=== PATIENT | male | born 1945 | race Caucasian/White ===

== ENCOUNTER 2016-06-22 12:52 | Inpatient (IN) | payer OTHER ==
--- NOTE | ~2016-06-22 | DS ---
Discharge Summary [facility] [address] [place]. [address] NAME: ANA BRIONES : 45 STATUS : ADM IN [facility]#: [id number] AGE: 70 ADM/REG DATE : 06/22/16 MR#: [id number] REPORT SERV DATE: 06/24/16 DICTATED BY: ROMA PRIDE DATE: 06/24/16 REPORT STATUS : Draft TRANSCRIBED BY: MODL DATE: 06/24/16 ADMISSION DATE: 06/22/2016 DISCHARGE DATE: DATE OF : 06/24/2016 at 1352 hours. ADMISSION DIAGNOSES: 1. Encephalopathy. 2. Febrile illness, possible meningitis. 3. History of ankylosing spondylitis, on Enbrel. 4. Atrial fibrillation, chronic. 5. Hypertension. 6. History of pneumonia. 7. History of arthritis. 8. History of anemia. 9. History of depression. 10.Congestive heart failure. DISCHARGE DIAGNOSES: 1. MSSA septic shock. 2. Acute kidney injury. 3. Continued encephalopathy. 4. Possible xuo-RZ-diqwjqn elevation myocardial infarction with decreased ejection fraction. 5. Atrial flutter/atrial fibrillation. 6. Rhabdomyolysis. CONSULTATIONS DURING THIS HOSPITALIZATION: To Infectious Diseases, Dr. Longoria and to Neurology, Dr. Hammond. HOSPITAL COURSE: This is a 70-year-old patient, who was brought to the hospital after he became unresponsive at home and was noted to have high fevers as high as 104. The patient has known ankylosing spondylitis and it was difficult to tell as to whether or not he had a stiff neck. There was serious consideration to the possibility of meningitis. LP was ordered, however, the patient was so obtunded that it was feared that he will not be able to maintain his airway and so this was canceled. The patient was then pancultured and transferred to the MICU for further care. Code status is a DNR, and this is the other reason intubation was not chosen. The patient eventually grew out methicillin-sensitive Staph aureus and he was changed to Ancef as per Dr. Longoria. Neurology then saw the patient, did an EEG that showed no evidence of seizures. A long discussion was had with the family on 06/23/2016 and they were very clear that his wishes were not to have full resuscitation, no dialysis, and no feeding tubes. The patient did have a nasogastric tube placed mostly for the administration of medication. It was thought at first that perhaps the patient had serotonin syndrome and he was treated with cyproheptadine which was discontinued on the . The patient also had an increase in troponin and a decrease in left ventricular function on the echocardiogram. He was seen by Cardiology. However, given the patient's Discharge Summary [facility] [address] [place]. [address] NAME: ANA BRIONES : 45 STATUS : ADM IN PAT#: [id number] AGE: 70 ADM/REG DATE : 06/22/16 MR#: [id number] REPORT SERV DATE: 06/24/16 DICTATED BY: ROMA PRIDE DATE: 06/24/16 REPORT STATUS : Draft TRANSCRIBED BY: ELIZA DATE: 06/24/16 severe debilitated condition, he was not a candidate for any aggressive therapy such as cardiac catheterization. So, the patient was then just conservatively treated. Biggest issue was the patient's acute kidney injury, he continued to be oliguric despite high doses of diuretic. He also had been on Levophed and vasopressin. Those were slowly able to be weaned. However, there was not any significant improvement in the patient's condition. Further discussion was undertaken with the family on 06/24/2016 and at that time, it was decided to pursue comfort measures and to withdraw care. This was accomplished on the morning of 06/24/2016. The patient quietly in the afternoon at 1352 hours. /MODDerek Roma Pride M.D. / [id number] CC: DO Sage Rivera M.D.
--- NOTE | ~2016-06-22 | HP ---
History And Physical [facility] [address] [place] [place]. [address] NAME: ANA BRIONES : 45 STATUS : ADM IN [facility]#: [id number] AGE: 70 ADM/REG DATE : 06/22/16 MR#: [id number] REPORT SERV DATE: 06/22/16 DICTATED BY: POLA WALDRON DATE: 06/22/16 REPORT STATUS : Draft TRANSCRIBED BY: MODL DATE: 06/22/16 DATE OF ADMISSION: 06/22/2016 HISTORY OF PRESENT ILLNESS: This is a 70-year-old white male whom we are admitting to the ICU for altered mental status and fever of 104.8. Most of the history was obtained from the emergency room physician and the daughter by phone. The patient apparently had normal mental status a couple days ago but then it got progressively worse to the point of being unresponsive. He had a 104.8 fever in triage and mildly hypertensive. Complete source of infection is not clear at this time. There was concern for possible meningitis but he does have a history of ankylosing spondylitis and between that and his altered mental status lumbar puncture was not able to be obtained by either the emergency room physician or Interventional Radiology. He was thought to have had a seizure as witnessed by the emergency room physician. His initial diagnostic data showed a normal white blood cell count of 7.5 but had elevated bands of 54% and a lactate of 3.7. His flu swab was negative. He did have a CT scan of his chest that showed mild infiltrates in both lungs. He was started empirically on vancomycin, Zosyn, cefepime, and ampicillin. He also was giving 2 L of IV fluid for his sepsis, and he was also loaded with Keppra as well for the seizure activity. It does appear that the patient had some type of cardiac injury with an elevated troponin, but EKG did not show any evidence of STEMI but troponin level was elevated at 5.83. Code status was not really addressed with the family up to this point before I was involved with the patient, and the family had already gone home by the time I got to the emergency room to see the patient. REVIEW OF SYSTEMS: Unable to be obtained. PAST MEDICAL HISTORY: Ankylosing spondylitis, atrial fibrillation, hypertension, pneumonia, arthritis, anemia, depression, and CHF. PAST SURGICAL HISTORY: Left hip surgery. ALLERGIES: INDOCIN. HOME MEDICATIONS: Awaiting pharmacy to reconcile these. Apparently, the patient is thought to be on Enbrel. SOCIAL HISTORY: He is and lives with as well as his daughter. FAMILY HISTORY: The patient is adopted. PHYSICAL EXAMINATION: VITAL SIGNS: Per nursing flow sheet. GENERAL: The patient is lying with altered mental status and very minimal interaction. NEUROLOGIC: Response to pain only. We will try to localize somewhat. He will open his History And Physical [address] [place]. [address] NAME: ANA BRIONES : 45 STATUS : ADM IN PAT#: [id number] AGE: 70 ADM/REG DATE : 06/22/16 MR#: [id number] REPORT SERV DATE: 06/22/16 DICTATED BY: POLA WALDRON DATE: 06/22/16 REPORT STATUS : Draft TRANSCRIBED BY: ELIZA DATE: 06/22/16 eyes to painful stimuli. His neck exam shows a very stiff neck, not able to flex, extend, or turn the head at all. He does moan and wake up when I lift his legs in the air. Pupils are equal and reactive. NECK: Trachea midline. No palpable lymph nodes. HEENT: Normocephalic and atraumatic. HEART: Irregularly irregular and tachycardic. LUNGS: Bilateral rhonchi on oxygen. GI: Soft, nontender, and nondistended. EXTREMITIES: No significant edema. SKIN: No obvious rash that was noticeable. LABORATORY DATA: Labs and radiology studies extensively reviewed by myself. Case was discussed with Dr. Horne, the emergency room physician; Infectious disease with Dr. Longoria; Dr. Cortez with Neurology; as well as the family. ASSESSMENT/PLAN: 1. Fever. 2. Sepsis. 3. Possible meningitis, unclear. 4. Seizure activity. 5. Non-STEMI. 6. Atrial fibrillation with rapid ventricular response. 7. Altered mental status. 8. Acute kidney injury. 9. Possible pneumonia ? aspiration. 10.Splenomegaly. 11.Chronic systolic heart failure with EF 30% by SERAFIN back in 2014. Neurologic: The patient will be covered empirically for meningitis as per Infectious Disease plan below. For possible seizure, we will continue with Keppra at 1000 mg IV twice a day. We will continue with aspiration precautions for this patient. Avoid sedatives and pain medications at this time. Possibility for lumbar puncture. Repeat by IR if his mental status or airway is little bit more reliable. I will order EEG. He may need an MRI. Cardiac: He does have atrial fibrillation and elevated heart rate. Probably, he does have some type of non STEMI. We will consult cardiology to see in the morning. We will start a heparin drip. However, if he is going to get a lumbar puncture, we will probably hold off on aspirin for now but will likely institute this if we are able to get the cerebral spinal fluid. We will cycle cardiac enzymes. We will also check a TSH level and free T4 level. Also order a 2D echocardiogram. LUNGS: The patient may have possibly aspirated. He does have some bilateral infiltrates in the lung but they are small and unclear if this represents the major etiology of his infection. However, given the antibiotics he is on, he should be covered for any significant pulmonary infection. We will give the patient oxygen with goal saturation 92% to 94%. History And Physical [address] [place]. [address] NAME: ANA BRIONES : 45 STATUS : ADM IN [facility]#: [id number] AGE: 70 ADM/REG DATE : 06/22/16 MR#: [id number] REPORT SERV DATE: 06/22/16 DICTATED BY: POLA WALDRON DATE: 06/22/16 REPORT STATUS : Draft TRANSCRIBED BY: ELIZA DATE: 06/22/16 GI: The patient will be n.p.o. : Muniz catheter in place with strict I and Os. Infectious disease: I spoke with Dr. Longoria by phone. We will start patient on vancomycin and Rocephin and ampicillin and acyclovir. Blood cultures were drawn. We will add procalcitonin level as well as other routine lab work including lactate level. DISPOSITION: I spoke with daughter and by phone and they do not want the patient to be intubated or undergo any type of resuscitation such as CPR or shock in the event of cardiac arrest. They are okay for medicines to treat hypotension. 90 minutes of critical care time. CEP/MODL Pola Waldron DO / [id number] CC: Sage Arreola M.D.
--- NOTE | ~2016-06-22 | EEG ---
Electroencephalogram [facility] [address] [place]. [address] NAME: ANA BRIONES : 45 STATUS : ADM IN PAT#: [id number] AGE: 70 ADM/REG DATE : 06/22/16 MR#: [id number] REPORT SERV DATE: 06/24/16 DICTATED BY: LEONARD HAMMOND DATE: 06/24/16 REPORT STATUS : Draft TRANSCRIBED BY: MODL DATE: 06/24/16 INTERPRETING PHYSICIAN: Leonard Hammond MD REASON FOR EEG: Possible meningitis, questionable seizures on admission, altered mental status, encephalopathy. EEG NUMBER: [id number]. FINDINGS: 23 surface electrodes, 10-20 international placement was used. Photic stimulation was performed. Video monitoring was utilized. The patient was noted to be unresponsive throughout the study. The background activity consisted of low voltage, poorly organized 6-7 cycles per second, located in the posterior head regions. Intermittent slower frequencies in the theta range were also noted. This slower frequency activity was more prominent in the anterior head regions. No paroxysmal epileptiform activity was seen during this study. The patient's teletypesetter monitor showed sinus tachycardia with sinus arrhythmia, heart rate of approximately 120 beats per minute. Photic stimulation did not bring out additional abnormalities. No driving response was observed. Low voltage beta range activity was also seen, which may represent medication effect. Some Spindle-like activity of low voltage was also seen. No significant asymmetry of cerebral activity was noted. IMPRESSION: ABNORMAL EEG CHARACTERIZED BY PRESENCE OF DIFFUSE SLOWING OF CEREBRAL ACTIVITY. NO PAROXYSMAL OR EPILEPTIFORM ACTIVITY WAS NOTED DURING THIS STUDY. A DIFFUSE CEREBRAL DYSFUNCTION, POSTICTAL STATE, OR MEDICATION EFFECT MAY PRESENT IN A SIMILAR EEG PATTERN AND CLINICAL CORRELATION IS RECOMMENDED. ISAIAHA/ELIZA Leonard Hammond MD / [id number] CC: DO Sage Rivera M.D.
--- NOTE | ~2016-06-22 | OP ---
Record Of Operation [facility] [address] [place]. [address] NAME: ANA BRIONES : 45 STATUS : ADM IN PAT#: [id number] AGE: 70 ADM/REG DATE : 06/22/16 MR#: [id number] REPORT SERV DATE: 06/23/16 DICTATED BY: ARTIE WALDRON DATE: 06/23/16 REPORT STATUS : Draft TRANSCRIBED BY: MODL DATE: 06/23/16 DATE OF PROCEDURE: PREPROCEDURE DIAGNOSES: Sepsis, fever, altered mental status. POSTPROCEDURE DIAGNOSES: Sepsis, fever, altered mental status. DESCRIPTION: Informed consent was obtained from the daughter by phone. The patient was in the ICU at the time of the procedure. Attempted a left femoral triple lumen catheter. The area of the left groin was cleaned with chlorhexidine and the area was prepped and draped, and I was gowned. Ultrasound used throughout the entire procedure. I was able to easily gain access to the left femoral vein without any difficulty, which showed dark nonpulsatile blood flow. Guidewire would only insert so far by dilating and inserting the triple-lumen catheter, but was unsuccessful. I aborted the left groin, held pressure, and I stopped the heparin drip to limit the risk of hematoma. I went to the right groin and under semi- sterile conditions because we needed IV access because of him being on pressors and hypotensive, the right groin was done under semi-sterile conditions. I did use chlorhexidine to clean up the right groin and inserted the introducer needle and was able to gain access to the right femoral vein without any difficulty. I inserted the guidewire, which initially also having the same problems where I would get stuck and not able to feed the guidewire all the way, but I was able to manipulate the guidewire by turning it and was able to insert it the rest of the way and using the modified Seldinger technique, I was able to place a triple-lumen catheter successfully. All ports were flushed and the line was sutured, also dressed as well. The patient probably had about 5 to 10 mL of blood loss. CEP/MODL Artie Waldron DO / [id number] CC: DO Sage Rivera M.D.
--- NOTE | ~2016-06-22 | CN ---
Consultation Report [facility] [address] [place]. [address] NAME: ANA BRIONES : 45 STATUS : ADM IN PAT#: [id number] AGE: 70 ADM/REG DATE : 06/22/16 MR#: [id number] REPORT SERV DATE: 06/23/16 DICTATED BY: ANDI LONGORIA DATE: 06/23/16 REPORT STATUS : Draft TRANSCRIBED BY: MODL DATE: 06/23/16 INFECTIOUS DISEASE CONSULT DATE OF CONSULTATION: 06/23/2016 MICU bed #11. REASON FOR CONSULTATION: Severe sepsis. HISTORY OF PRESENT ILLNESS: This is a 70-year-old man with a past medical history notable for decades of ankylosing spondylitis for which he is on Enbrel therapy along with hypertension, history of atrial fibrillation, CHF, and anemia. The patient was brought to the emergency department at [facility] yesterday at 12:52 because of worsening mental status after being found unresponsive by the patient's family earlier in the day and after appearing fairly normal the day before. He was found to have a fever of 104.8 and was tachycardic and had a marked bandemia of 54% and evidence of acute kidney injury and elevated lactate and did develop significant hypotension. The patient underwent extensive imaging workup including CT scans without contrast of the brain, chest, abdomen, and pelvis and he was started on empiric antibiotics. I discussed the case with Dr. Waldron last night. There was some concern about the possibility of meningitis. The patient was started on vancomycin, ceftriaxone, ampicillin, and acyclovir. He was unable to undergo lumbar puncture secondary to concern about his airway and also his ankylosing spondylitis. Admission blood cultures have returned positive for gram-positive cocci in clusters which have been presumptively identified as MSSA. The patient is on Levophed drip. His creatinine continues to worsen and he has also been found to have evidence of rhabdomyolysis with elevated CPK levels and elevated myoglobin in the blood. The patient himself is not responsive. His troponins are also elevated. PAST MEDICAL HISTORY: In addition to the above, notable for C3 through T2, spine fusion by Dr. Hutton in 2014. Later in 2014, after a fall, he suffered fracture dislocation at C5-C6. He has had a left hip surgery. ALLERGIES: HE DOES NOT TOLERATE INDOMETHACIN. OUTPATIENT MEDICATIONS: In addition to Enbrel included Zoloft, Lopressor, Prinivil, Gingko biloba, iron sulfate, aspirin, and Fosamax along with the tramadol and melatonin. SOCIAL HISTORY: He lives with his . She apparently is blind. His daughter lives with him and does a lot of the care apparently. He has been disabled for many years. Nonsmoker. Nondrinker. FAMILY HISTORY: He is adopted. REVIEW OF SYSTEMS: As outlined above, otherwise negative, are difficult to obtain from the patient. Consultation Report [facility] [id number] [facility] [address] NAME: ANA BRIONES : 45 STATUS : ADM IN PAT#: [id number] AGE: 70 ADM/REG DATE : 06/22/16 MR#: [id number] REPORT SERV DATE: 06/23/16 DICTATED BY: ANDI LONGORIA DATE: 06/23/16 REPORT STATUS : Draft TRANSCRIBED BY: ELIZA DATE: 06/23/16 PHYSICAL EXAMINATION: VITAL SIGNS: Blood pressure 98/58 on the Levophed, maximal pulse was 200, presently his pulse is 120, maximum respiratory rate was 50, presently 27. He weighs 80 kg. He is lying in bed with a non-rebreather oxygen mask on, not really responsive. HEENT: Head and neck exam is otherwise unremarkable but I cannot see inside his oral cavity. I did not really try to flex his neck given his underlying disease. LUNGS: Mild upper airway sounds and rhonchi bilaterally. CARDIAC: Tachycardic regular. No murmur, gallop, or rub. ABDOMEN: Nondistended, quiet, soft, and nontender. EXTREMITIES: Showed no stigmata of endocarditis. JOINT: Exam shows no evidence of septic arthritis. SKIN: Without rash. LABORATORY STUDIES: White blood cell count today 12.3, hemoglobin 12.1, and platelets 48,000, they were 76,000 yesterday, 60% bands. Today creatinine is up to 3.14, albumin 3.1, bilirubin 0.9. AST 213. CPK 3296. Troponin 26.3. Myoglobin 7383 with normal being 0 to 85. Repeat creatinine this afternoon up to 3.78. Blood cultures as mentioned. Urinalysis on admission, large blood, [address] scan of the brain without IV contrast with mild atrophy and chronic white matter gliosis. CT scan of the chest, abdomen, and pelvis without IV contrast shows some small bilateral peripheral upper lobe lung infiltrates and small regions of consolidation of the lung bases, ascending aorta measuring 4 cm, calcified atherosclerotic disease, and splenomegaly. The scan is reviewed. IMPRESSION: MSSA septicemia with severe sepsis and shock in a patient who is immunocompromised on Enbrel. He also has evidence of rhabdomyolysis. The source of the Staph is not clear. I do not see obvious signs of endocarditis. Obviously, we always have to be concerned about spine infection and he does have hardware in his neck. I very much doubt meningitis though. PLAN: 1. We will change antibiotics to Ancef to cover the Staph. 2. He is at high risk for aspiration, so we will reassess his antibiotic coverage in the morning after stopping his ceftriaxone after today's afternoon dose. 3. Very poor prognosis. CLOVIS/ELIZA Andi Longoria M.D. / [id number] CC: Consultation Report [address] [address] NAME: ANA BRIONES : 45 STATUS : ADM IN [facility]#: [id number] AGE: 70 ADM/REG DATE : 06/22/16 MR#: [id number] REPORT SERV DATE: 06/23/16 DICTATED BY: ANDI LONGORIA DATE: 06/23/16 REPORT STATUS : Draft TRANSCRIBED BY: MODL DATE: 06/23/16 DO Sage Rivera M.D.
--- NOTE | ~2016-06-22 | CN ---
Consultation Report [facility] [address] [place]. [address] NAME: ANA JOHNSON : 45 STATUS : ADM IN PAT#: [id number] AGE: 70 ADM/REG DATE : 06/22/16 MR#: [id number] REPORT SERV DATE: 06/23/16 DICTATED BY: FAUSTO MODI DATE: 06/23/16 REPORT STATUS : Draft TRANSCRIBED BY: MODL DATE: 06/23/16 CARDIOLOGY CONSULT DATE OF CONSULTATION: 06/23/2016 CURRENT LOCATION: [facility]. CONSULTING REASON: Abnormal troponin. HISTORY OF ILLNESS: Mr. Johnson is a 70-year-old male who is chronically debilitated secondary to ankylosing spondylitis, who is on chronic immunosuppression with Enbrel, who was brought to the emergency room by his family with progressive altered mental status over the past 72 hours with a fever earlier today of 104.5 degrees Fahrenheit. On arrival to the ER, he was nonresponsive with altered mental status and metabolic encephalopathy. Septic shock was suspected given his history of chronic immunosuppression. He was initially in atrial flutter on arrival, this is now converted to sinus tachycardia on norepinephrine drip for sepsis and hypotension. No reported recent history of chest pain or shortness of breath. Per discussion with Critical Care, he had been doing reasonably well at home with his chronic illness until altered mental status developed and progressed as described above. No reported history of palpitations or syncope. He has a history of paroxysmal atrial fibrillation and a history of "heart failure" with no recent symptoms of shortness of breath or edema. Echocardiogram was obtained, which showed an LVEF of 30% with global hypocontractility and no regional wall motion abnormalities. This is a decline from previous assessment of 40% to 45%. Initial troponin in the ER was 5 and it has trended up to 26, but this is in the setting of severely elevated CPK, renal failure, and elevated LFTs with possible multi-overt failure and rhabdomyolysis. REVIEW OF SYSTEMS: Pertinent positives and negatives are as outlined above, others cannot be obtained due to altered mental status and family not present at this time. PAST MEDICAL HISTORY: 1. Ankylosing spondylitis. 2. Chronic immunosuppressive therapy. 3. Hypertension. 4. Paroxysmal atrial fibrillation, on chronic aspirin. 5. History of "heart failure.". CURRENT HOME MEDICATIONS: 1. Metoprolol 50 mg twice daily. 2. Lisinopril 5 mg q.h.s. 3. Aspirin 325 mg daily. 4. Fosamax. 5. Enbrel injections as directed. Consultation Report [facility] [address] [place]. [address] NAME: ANA JOHNSON : 45 STATUS : ADM IN PAT#: [id number] AGE: 70 ADM/REG DATE : 06/22/16 MR#: [id number] REPORT SERV DATE: 06/23/16 DICTATED BY: FAUSTO MODI DATE: 06/23/16 REPORT STATUS : Draft TRANSCRIBED BY: ELIZA DATE: 06/23/16 6. Iron supplementation. 7. Gingko biloba. 8. Sertraline 100 mg daily. 9. Ultram 50 mg twice daily. 10.Melatonin q.h.s. ALLERGIES: INCLUDE INDOMETHACIN WITH AN UNKNOWN REACTION. SOCIAL HISTORY: He previously lived at home with family support. He is DNR. He has no reported tobacco or alcohol use history. FAMILY HISTORY: No significant family history of premature CAD, cardiomyopathy, or sudden . PHYSICAL EXAMINATION: VITALS: Temp is 99. Pulse is 120. Respirations 24. BP is 90/50 on max dose norepinephrine. GENERAL: Critically ill appearing male who is not arousable. HEENT: Sclerae anicteric, mucous membranes moist and without lesions. The patient is diaphoretic. NECK: No jugular venous distention. No hepatojugular reflux, carotid upstrokes 2+ and symmetric, there are no carotid or subclavian bruit. LUNGS: Decreased breath sounds with coarse rhonchi throughout. No wheezes. CARDIOVASCULAR: Regular and tachycardiac with distant S1 and S2. No audible S3. No audible murmurs. ABDOMEN: Soft with positive bowel sounds. PULSES: Radial and dorsalis pedis pulses are all 1+ and diminished throughout. EXTREMITIES: Slightly cool and without edema. SKIN: No clubbing or cyanosis, no rashes or lesions. ACCESSORY DATA: Creatinine is 3 with initial presentation of 1.5. Other electrolytes unremarkable. Hematocrit 38 with a platelet count of 48. Initial troponin 5, trended up to 26. CK-MB 24 up to 32. Severely elevated CPK noted. Blood culture is positive for MRSA at less than 12 hours. Echocardiogram with EF 30% and global hypocontractility. IMPRESSION: 1. Methicillin-resistant Staphylococcus aureus sepsis. 2. Septic shock. 3. Abnormal troponin, suspected non-ST elevation myocardial infarction versus rhabdomyolysis. 4. Atrial fibrillation/flutter on arrival, now sinus tachycardia. 5. Acute renal failure. 6. Acute liver injury with elevated liver function tests. Consultation Report [facility] [id number] [place]. [address] NAME: ANA JOHNSON : 45 STATUS : ADM IN PAT#: [id number] AGE: 70 ADM/REG DATE : 06/22/16 MR#: [id number] REPORT SERV DATE: 06/23/16 DICTATED BY: FAUSTO MODI DATE: 06/23/16 REPORT STATUS : Draft TRANSCRIBED BY: MODDerek DATE: 06/23/16 7. Anemia/thrombocytopenia. 8. History of ankylosing spondylitis, on chronic immunosuppression. 9. DO NOT RESUSCITATE. PLAN: Mr. Johnson has an elevated troponin of undetermined etiology with a non-STEMI versus rhabdomyolysis. LVEF is declined to 30% which could be due to overall critical illness and tachycardia. At this point in time, given his critical presentation with severe sepsis, septic shock, and multiorgan failure including thrombocytopenia, there are no aggressive options for treatment from a cardiovascular standpoint. No invasive coronary angiography plan. Recommend fondaparinux given thrombocytopenia and high bleeding risk with aspirin if there are no bleeding contraindications. No ALEJANDRO/ARB due to acute renal failure. No statins or elevated LFTs and no beta blockers while septic and hypotensive on pressors/inotropes. His care was discussed with Dr. Pride. He has very poor/grave prognosis. We will be available if needed. Please call with questions. AEA/MODL Fausto Modi M.D. / [id number] CC: DO Sage Rivera M.D.
[~2016-06-22 12:52] MED LIST: AMB10 PO; ASA5GR PO; ELIQUIS 5 MG TAB5 MG PO; FERROUS SULF325 M1 PO; IBUDONE1 TA1 OR; LOP25 PO; OS500+D PO; P10 PO; PRIN5 PO; ULTRAM50 PO; ZOL100 PO; [UNRECOGNIZED DRUG - OTHER]; [UNRECOGNIZED DRUG - OTHER] IM
[2016-06-22 13:24] LABS: BASOPHILS 0.1 %; BASOPHILS ABSOLUTE 0.01 10/3/uL (0.0-0.16); EOSINOPHILS 0.1 %; EOSINOPHILS ABSOLUTE 0.01 10/3/uL (0.0-0.53); ER CBC TAT 0 Hrs 05 Mins; HEMATOCRIT 39.8 % (40.0-51.0); HEMOGLOBIN 13.2 g/dL (13.6-17.8); MANUAL DIFF NO %; MEAN CORPUS HGB CONC 33.2 g/dL (32.0-36.0); MEAN CORPUSCULAR HEMOGLOB 27.6 pg (26.0-34.0); MEAN CORPUSCULAR VOLUME 83.3 fL (80-100); MONOCYTES 4.1 %; MONOCYTES ABSOLUTE 0.31 10/3/uL (0.21-1.20); PLATELET COUNT 76 10/3/uL (150-400); RBC DISTRIBUTION WIDTH 17.6 % (12.0-16.0); RED CELL COUNT 4.78 10/6/uL (4.7-6.1); WHITE BLOOD CELLS 7.5 10/3/uL (4.5-10.5)
[2016-06-22 13:31] LABS: INTERNATIONAL NORMAL RATI 1.4 UNITS (-); PARTIAL THROMBO TIME 41.3 SEC (22.5-37.2); PROTIME (NOT ORD) 17.4 SEC (12.0-14.5)
[2016-06-22 13:41] LABS: ALLENS TEST Pos; BE (BASE EXCESS) -0.6 MEQ/L (0 +/- 2.5); CARBOXYHEMOGLOBIN 0.3 % (0-3); HCO3 (ACTUAL BICARBONATE) 23.4 MEQ/L (23-27); HEMOBLOGIN CONTENT 14.2 G/DL (14-18); INSTRUMENT SERIAL # 35151; METHEMOGLOBIN 0.6 % (0-3); O2 CONTENT 18.9 VOL% (18-24); PCO2 (CO2 TENSION) 37 MMHG (35-45); PO2 (O2 TENSION) 80 MMHG (79-93); SAMPLE Arterial; pH 7.43 (7.37-7.43)
[2016-06-22 13:42] LABS: BAND NEUTROPHILS 54 %; ER DIFF TAT 0 Hrs 23 Mins; LYMPHOCYTES 2 %; LYMPHOCYTES ABSOLUTE (CALC) 0.15 10/3/uL (0.67-4.30); MONOCYTES 2 %; MONOCYTES ABSOLUTE (CALC) 0.15 10/3/uL (0.21-1.20); SEGMENTED NEUTROPHIL (0) 42 %; TOTAL NUCLEATED CELLS 100
[2016-06-22 13:43] LABS: LACTATE 3.7 MMOL/L (0.3-2.4)
[2016-06-22 13:43] LABS: ANISOCYTOSIS 1+ (5-10/OIF) (0-5/OIF); PLATELET ESTIMATE DEC (ADEQUATE); TOXIC GRANULATION 1+; VACUOLATED NEUTROPHILES FEW
[2016-06-22 13:44] LABS: ALBUMIN 3.3 G/DL (3.5-5.0); BUN (BLOOD UREA NITROGEN) 20 MG/DL (6-23); CALCIUM, SERUM 8.5 MG/DL (8.5-10.4); CHLORIDE, SERUM 104 MMOL/L (96-112); CPK 437 U/L (0-200); CREATININE 1.53 MG/DL (0.70-1.30); GFR AFRICAN AMERICAN 53 ML/MIN (>=60); GFR NON AFRICAN AMERICAN 45 ML/MIN (>=60); SGOT(AST) 84 U/L (5-40); SGPT(ALT) 41 U/L (5-65); SODIUM, SERUM 143 MMOL/L (135-148); TOTAL BILIRUBIN 0.9 MG/DL (0-1.2); TOTAL PROTEIN 8.3 G/DL (6.0-8.5)
[2016-06-22 13:49] LABS: A/G RATIO 0.7 (0.7-1.9); ACETAMINOPHEN LEVEL (TYLENOL) < 2.0 MCG/ML (10.0-20.0); ALCOHOL < 10 MG/DL (0); ALKALINE PHOSPHATASE 58 U/L (45-117); CO2 (CARBON DIOXIDE) 21 MMOL/L (24-34); GLUCOSE, SERUM 156 MG/DL (60-99); POTASSIUM, SERUM 3.2 MMOL/L (3.5-5.3); SALICYLATE < 1.7 MG/DL (-); TROPONIN I 5.83 NG/ML (<0.05)
[2016-06-22 13:52] LABS: ASCORBIC ACID (UR NOT ORDER) NEG (NEG); BILIRUBIN, URINE NEGATIVE (NEG); ER URINALYSIS TAT 0 Hrs 14 Mins; KETONE, URINE TRACE MG/DL (NEG); LEUKOCYTE ESTERASE(NOT OR NEG (NEG); NITRITE (URINE) NEG (NEG); WBC (NOT ORDERED) (RFLEX) 5 (0-5)
[2016-06-22 13:56] LABS: INFLUENZA A SCREEN NEGATIVE (NEGATIVE); INFLUENZA B SCREEN NEGATIVE (NEGATIVE)
[2016-06-22 14:08] LABS: AMPHETAMINES (NOT ORD) NEG (NEG); BARBITURATES (NOT ORDERED NEG (NEG); BENZODIAZEPINES (NOT ORD) NEG (NEG); CANNABINOIDS (THC) NEG (NEG); COCAINE (NOT ORDERED) NEG (NEG); OPIATES POS (NEG); PHENCYCLIDINE(PCP) NEG (NEG); TRICYCLICS NEG (NEG)
[2016-06-22] MEDS ORDERED: GINKGO BILO2 PO (14:43)
[2016-06-22] MEDS ORDERED: ASA5GR PO (14:43)
[2016-06-22] MEDS ORDERED: MELATONIN PO (14:43)
[2016-06-22] MEDS ORDERED: ENBREL25 MG SC (14:44)
[2016-06-22] MEDS ORDERED: ZOL100 PO (14:44)
[2016-06-22] MEDS ORDERED: ULTRAM50 PO (14:44)
[2016-06-22] MEDS ORDERED: LOP50 PO (14:44)
[2016-06-22] MEDS ORDERED: PRIN5 PO (14:44)
[2016-06-22] MEDS ORDERED: FOSAMAX70 MG PO (14:45)
[2016-06-22] MEDS ORDERED: FERROUS SULF325 M1 PO (14:45)
[2016-06-23 01:43] LABS: FREE T4 1.5 NG/DL (0.76-1.46)
[2016-06-23 01:45] LABS: ULTRASENSITIVE TSH 1.2 MCIU/ML (0.358-3.740)
[2016-06-23 01:59] LABS: CK-MB 24.1 NG/ML; CKMB INDEX (NOT ORD) 1.2
[2016-06-23 02:21] LABS: PROCALCITONIN 69.66 ng/mL (<0.5)
[2016-06-23 05:02] LABS: INTERNATIONAL NORMAL RATI 1.4 UNITS (-); PARTIAL THROMBO TIME 46.2 SEC (22.5-37.2); PROTIME (NOT ORD) 17.3 SEC (12.0-14.5)
[2016-06-23 05:04] LABS: HEMATOCRIT 38.3 % (40.0-51.0); HEMOGLOBIN 12.1 g/dL (13.6-17.8); MEAN CORPUS HGB CONC 31.6 g/dL (32.0-36.0); MEAN CORPUSCULAR HEMOGLOB 26.9 pg (26.0-34.0); MEAN CORPUSCULAR VOLUME 85.1 fL (80-100)
[2016-06-23 05:05] LABS: PLATELET COUNT 48 10/3/uL (150-400); WHITE BLOOD CELLS 12.3 10/3/uL (4.5-10.5)
[2016-06-23 05:07] LABS: MANUAL DIFF YES %
[2016-06-23 05:19] LABS: ALBUMIN 3.1 G/DL (3.5-5.0); CALCIUM, SERUM 7.9 MG/DL (8.5-10.4); CHLORIDE, SERUM 108 MMOL/L (96-112); CO2 (CARBON DIOXIDE) 22 MMOL/L (24-34); CPK (IF ELEVATED MB BANDS) 3296 U/L (0-200); DIRECT BILIRUBIN 0.2 MG/DL (0.0-0.4); INDIRECT BILIRUBIN(NOT ORDER) 0.7 MG/DL (0.1-0.9); PHOSPHORUS, SERUM 4.1 MG/DL (2.5-4.5); POTASSIUM, SERUM 3.7 MMOL/L (3.5-5.3); SGOT(AST) 213 U/L (5-40); SGPT(ALT) 69 U/L (5-65); SODIUM, SERUM 145 MMOL/L (135-148); TOTAL BILIRUBIN 0.9 MG/DL (0-1.2); TOTAL PROTEIN 7.4 G/DL (6.0-8.5)
[2016-06-23 05:21] LABS: ALKALINE PHOSPHATASE 44 U/L (45-117); BUN (BLOOD UREA NITROGEN) 36 MG/DL (6-23); CREATININE 3.14 MG/DL (0.70-1.30); GFR AFRICAN AMERICAN 22 ML/MIN (>=60); GFR NON AFRICAN AMERICAN 19 ML/MIN (>=60); GLUCOSE, SERUM 121 MG/DL (60-99)
[2016-06-23 06:04] LABS: CK-MB 32.1 NG/ML
[2016-06-23 06:32] LABS: BAND NEUTROPHILS 60 %; LYMPHOCYTES 6 %; LYMPHOCYTES ABSOLUTE (CALC) 0.74 10/3/uL (0.67-4.30); MONOCYTES 1 %; MONOCYTES ABSOLUTE (CALC) 0.12 10/3/uL (0.21-1.20); NEUTROPHILS ABSOLUTE (CALC) 11.44 10/3/uL (2.02-8.40); SEGMENTED NEUTROPHIL (0) 33 %; TOTAL NUCLEATED CELLS 100
[2016-06-23 06:33] LABS: ANISOCYTOSIS 1+ (5-10/OIF) (0-5/OIF); HYPOCHROMIA 1+ (3-10/OIF) (0-2/OIF)
[2016-06-23 06:34] LABS: TOXIC GRANULATION SLT; VACUOLATED NEUTROPHILES FEW
[2016-06-23 11:04] LABS: CK-MB 40.5 NG/ML
[2016-06-23 11:05] LABS: CKMB INDEX (NOT ORD) 1.2
[2016-06-23 13:09] LABS: BASOPHILS 0.2 %; BASOPHILS ABSOLUTE 0.04 10/3/uL (0.0-0.16); EOSINOPHILS 0 %; HEMATOCRIT 37.9 % (40.0-51.0); HEMOGLOBIN 12.3 g/dL (13.6-17.8); IMMATURE GRANULOCYTES ABSOLUTE 0.48 10/3/uL (0.0-0.11); LYMPHOCYTES 4.5 %; LYMPHOCYTES ABSOLUTE 0.73 10/3/uL (0.67-4.30); MEAN CORPUS HGB CONC 32.5 g/dL (32.0-36.0); MEAN CORPUSCULAR HEMOGLOB 27.4 pg (26.0-34.0); MEAN CORPUSCULAR VOLUME 84.4 fL (80-100); MONOCYTES 9.1 %; MONOCYTES ABSOLUTE 1.47 10/3/uL (0.21-1.20); NEUTROPHILS 83.2 %; NEUTROPHILS ABSOLUTE 13.35 10/3/uL (2.02-8.40); PLATELET COUNT 58 10/3/uL (150-400); RBC DISTRIBUTION WIDTH 18.6 % (12.0-16.0); RED CELL COUNT 4.49 10/6/uL (4.7-6.1); WHITE BLOOD CELLS 16.1 10/3/uL (4.5-10.5)
[2016-06-23 13:11] LABS: MANUAL DIFF NO %
[2016-06-23 13:16] LABS: INTERNATIONAL NORMAL RATI 1.3 UNITS (-); PARTIAL THROMBO TIME 33.9 SEC (22.5-37.2)
[2016-06-23 13:33] LABS: BUN (BLOOD UREA NITROGEN) 43 MG/DL (6-23); CALCIUM, SERUM 7.5 MG/DL (8.5-10.4); CHLORIDE, SERUM 106 MMOL/L (96-112); CO2 (CARBON DIOXIDE) 22 MMOL/L (24-34); CREATININE 3.78 MG/DL (0.70-1.30); GFR AFRICAN AMERICAN 18 ML/MIN (>=60); GFR NON AFRICAN AMERICAN 15 ML/MIN (>=60); GLUCOSE, SERUM 106 MG/DL (60-99); MYOGLOBIN, SERUM 7383 NG/ML (0-85); PHOSPHORUS, SERUM 3.8 MG/DL (2.5-4.5); POTASSIUM, SERUM 4.1 MMOL/L (3.5-5.3); SODIUM, SERUM 143 MMOL/L (135-148)
[2016-06-23 13:37] LABS: ANISOCYTOSIS 1+ (5-10/OIF) (0-5/OIF); PLATELET ESTIMATE DEC (ADEQUATE)
[2016-06-23 23:09] LABS: CK-MB 28.9 NG/ML
[2016-06-23 23:10] LABS: CKMB INDEX (NOT ORD) 0.8
[2016-06-24 04:02] LABS: HEMATOCRIT 37.9 % (40.0-51.0); HEMOGLOBIN 12.1 g/dL (13.6-17.8); MEAN CORPUS HGB CONC 31.9 g/dL (32.0-36.0); MEAN CORPUSCULAR HEMOGLOB 26.9 pg (26.0-34.0); MEAN CORPUSCULAR VOLUME 84.4 fL (80-100); NUCLEATED RED BLOOD CELLS 0.1 /100WBC (0-0); RBC DISTRIBUTION WIDTH 18.6 % (12.0-16.0); RED CELL COUNT 4.49 10/6/uL (4.7-6.1); WHITE BLOOD CELLS 18.7 10/3/uL (4.5-10.5)
[2016-06-24 04:05] LABS: PLATELET COUNT 47 10/3/uL (150-400)
[2016-06-24 04:06] LABS: MANUAL DIFF YES %
[2016-06-24 04:25] LABS: CALCIUM, SERUM 7.4 MG/DL (8.5-10.4); CHLORIDE, SERUM 106 MMOL/L (96-112); CO2 (CARBON DIOXIDE) 21 MMOL/L (24-34); CPK 3672 U/L (0-200); CPK (IF ELEVATED MB BANDS) 3672 U/L (0-200); GLUCOSE, SERUM 125 MG/DL (60-99); POTASSIUM, SERUM 3.8 MMOL/L (3.5-5.3); SODIUM, SERUM 143 MMOL/L (135-148)
[2016-06-24 04:26] LABS: BUN (BLOOD UREA NITROGEN) 50 MG/DL (6-23); CREATININE 5.42 MG/DL (0.70-1.30); DIGOXIN 1.1 NG/ML (0.8-2.0); GFR AFRICAN AMERICAN 11 ML/MIN (>=60); GFR NON AFRICAN AMERICAN 10 ML/MIN (>=60)
[2016-06-24 04:30] LABS: BAND NEUTROPHILS 40 %; LYMPHOCYTES 2 %; LYMPHOCYTES ABSOLUTE (CALC) 0.37 10/3/uL (0.67-4.30); MONOCYTES 4 %; MONOCYTES ABSOLUTE (CALC) 0.75 10/3/uL (0.21-1.20); NEUTROPHILS ABSOLUTE (CALC) 17.58 10/3/uL (2.02-8.40); SEGMENTED NEUTROPHIL (0) 54 %; TOTAL NUCLEATED CELLS 100
[2016-06-24 04:31] LABS: ANISOCYTOSIS 1+ (5-10/OIF) (0-5/OIF); GIANT PLATELET RARE
[2016-06-24 11:16] LABS: CK-MB 29.2 NG/ML
[2016-06-25 13:46] LABS: HEPARIN-INDUCED PLATELET AB NEGATIVE (NEGATIVE)
== END 2016-06-24 17:19 | disposition expired | DRG 871 ==
LOC: ER 12:52 → MIC 21:18
PROVIDERS: Emergency Medicine; Internal Medicine Pulmonary Disease
PROC: 06HM33Z Insertion of Infusion Device into Right Femoral Vein, Percutaneous Approach (ICD-10-PCS; principal; 2016-06-22)
PROC: B51B1ZA Fluoroscopy of Right Lower Extremity Veins using Low Osmolar Contrast, Guidance (ICD-10-PCS; 2016-06-22)
DX: A41.01 Sepsis due to Methicillin susceptible Staphylococcus aureus (principal); R65.21 Severe sepsis with septic shock; I21.4 Non-ST elevation (NSTEMI) myocardial infarction; G93.49 Other encephalopathy; N17.9 Acute kidney failure, unspecified; I42.9 Cardiomyopathy, unspecified; D69.6 Thrombocytopenia, unspecified; G03.9 Meningitis, unspecified; M62.82 Rhabdomyolysis; I48.92 Unspecified atrial flutter; I50.22 Chronic systolic (congestive) heart failure; I48.2 Chronic atrial fibrillation; Z51.5 Encounter for palliative care; Z66 Do not resuscitate; I10 Essential (primary) hypertension; M19.90 Unspecified osteoarthritis, unspecified site; F32.9 Major depressive disorder, single episode, unspecified; M45.9 Ankylosing spondylitis of unspecified sites in spine; Z53.09 Procedure and treatment not carried out because of other contraindication; D64.9 Anemia, unspecified; Z79.82 Long term (current) use of aspirin; Z79.899 Other long term (current) drug therapy; Z87.01 Personal history of pneumonia (recurrent)
CPT/HCPCS: 31720; 36600; 70450; 71010; 71250; 74000; 74176; 80048; 80053; 80076; 80162; 80202; 80305; 80307; 81001; 82140; 82330; 82533; 82550; 82553; 82803; 82805; 82945; 82947; 82962; 83605; 83690; 83735; 83874; 83880; 84100; 84132; 84145; 84157; 84295; 84439; 84443; 84484; 85014; 85025; 85610; 85730; 86022; 86592; 87040; 87070; 87077; 87102; 87150; 87186; 87205; 87210; 87449; 87529; 87529-59; 87556; 87641; 87804; 89051; 93005; 94660; 95816; 96374; 96375; 99291; A9270-GY; C8929; C9113; J0133; J0290; J0690; J0692; J1160; J1205; J1953; J2543; J3370; P9045; P9047; Q9957